=== PATIENT | male | born 1960 | race African-American/Black ===

== ENCOUNTER 2017-02-03 06:36 | Observation (INO) | payer MEDICAID ==
[~2017-02-03] VITALS: Ht 172.7 cm; Wt 76.0 kg
[2017-02-03] VITALS (10 sets, daily range): BP systolic 104–121; BP diastolic 72–88; PULSE 68–90; TEMP 97.9–98.3
[~2017-02-03 06:36] MED LIST: ADVIL 200MG TA200 MG PO; ALEVE 220MG220 MG PO; BENTYL 10MG10 MG/CAP PO; CARAFATE 1GM1 G PO; CELEBREX 1100 MG/CAP PO; DESYREL 50MG50 MG; EMBEDA PO; FLEXERIL 1010 MG/TAB PO; FLEXERIL10 MG PO; LORTAB 10/500 51 TA1 PO; LORTAB 5/500 501 TAB PO; MELATIN 3 MG-11 TAB PO; MUSCLE RELAXERS; NAPROSYN500 MG PO; NO HOME MEDICATIONS; NORCO 325 MG-101 TA1 PO; NORCO 325 MG-101 TAB PO; NORCO 325 MG-51 TAB PO; NORCO 325 MG-7.1 TAB PO; NORVASC 5MG5 MG/TAB PO; PERIACTIN 4MG TA4 MG PO; PRIL40 PO; PROTONIX 40MG T40 MG PO; TYLENOL 325MG325 MG PO; VALIUM 5MG T5 MG/TAB PO; ZANAFLEX CAPSULE2 MG PO; ZOFRAN 4MG T4 MG/TAB PO; ZOFRAN ODT4 MG PO
[2017-02-03 07:10] LABS: BASO % 0.5 % (0.0-2.0); EOS # 0.1 (0.0-0.7); EOS % 3.3 % (0-4.0); GRAN % 52.4 % (42.2-75.2); HEMATOCRIT 40.8 % (42.0-52.0); HEMOGLOBIN 13.4 g/dl (13.5-18.0); LYMPH # 1.2 (1.2-3.4); LYMPH % 30.6 % (20.0-51.0); MEAN CELL VOLUME 86 fl (80.0-100.0); MEAN CORPUSCULAR HEMOGLOBIN 28 pg (27.0-31.0); MEAN CORPUSCULAR HGB CONC 33 g/dl (33.0-37.0); MEAN PLATELET VOLUME 9.1 fl (7.4-10.4); MONO # 0.5 (0.1-0.6); MONO % 12.9 % (1.7-9.3); PLATELET COUNT 190 K/mm3 (130-400); RED BLOOD COUNT 4.76 M/mm3 (4.20-5.60); REDCELL DISTRIBUTION WIDTH-CV 14.3 % (11.5-14.5); WHITE BLOOD COUNT 3.9 K/mm3 (4.8-10.8)
[2017-02-03 08:20] LABS: ADJUSTED CALCIUM 8.2 mg/dL (8.4-10.2); ALBUMIN 3.7 gm/dL (3.5-5.0); BILIRUBIN,TOTAL 0.9 mg/dL (0.0-1.0); CREATININE, serum 0.73 mg/dL (0.66-1.25); POTASSIUM 3.1 mmol/L (3.4-5.0); TOTAL PROTEIN 7.1 gm/dL (6.4-8.2)
[2017-02-03] MEDS ORDERED: NORVASC2.5 MG PO (10:09)
[2017-02-03] MEDS ORDERED: PERIACTIN 4MG TA4 MG PO (10:10)
[2017-02-03] MEDS ORDERED: IBU400 MG PO (10:11)
[2017-02-03] MEDS ORDERED: NORVASC 5MG5 MG/TAB PO (10:11)
[2017-02-03] MEDS ORDERED: NORCO 325 MG-101 TAB PO (10:12)
[2017-02-03] MEDS ORDERED: LEXAPRO20 MG PO (10:13)
[2017-02-03] MEDS ORDERED: VALIUM 2MG T2 MG/TAB PO (10:13)
== END 2017-02-03 17:00 | disposition home or self-care (01) ==
LOC: COL.ER 06:36 → SURG 09:07
PROVIDERS: Emergency Medicine; Family Medicine
DX: T18.5XXA Foreign body in anus and rectum, initial encounter (principal); Z87.891 Personal history of nicotine dependence
CPT/HCPCS: J2270; J2550; J2704; J2765; J3010; J7030

== ENCOUNTER 2017-04-29 14:00 | Outpatient (RCR) | payer MEDICAID ==
[~2017-04-29 14:00] MED LIST changes: +IBU400 MG PO; +LEXAPRO20 MG PO; +NORVASC2.5 MG PO; +VALIUM 2MG T2 MG/TAB PO
== END 2017-05-09 16:37 ==
LOC: WSPT 14:00
DX: M54.41 Lumbago with sciatica, right side (principal); M25.522 Pain in left elbow; M54.2 Cervicalgia; G89.29 Other chronic pain; I10 Essential (primary) hypertension; Z87.891 Personal history of nicotine dependence

== ENCOUNTER → 2017-08-01 | Outpatient (CLI) | payer MEDICAID ==
[2017-08-01 16:37] LABS: AMPHETAMINE URINE NEGATIVE; BARBITURATES URINE NEGATIVE; BENZODIAZEPINES URINE NEGATIVE; BUPRENORPHINE URINE NEGATIVE; METHADONE URINE NEGATIVE; OPIATES URINE NEGATIVE; OXYCODONE URINE NEGATIVE; PHENCYCLIDINE URINE NEGATIVE; PROPOXYPHENE URINE NEGATIVE; THC CANNABINOIDS URINE NEGATIVE; TRICYCLIC ANTIDEPRESS URINE NEGATIVE
== END ==
LOC: COL.LAB 15:38
PROVIDERS: Nurse Practitioner
DX: M54.5 Low back pain (principal); G89.29 Other chronic pain

== ENCOUNTER 2022-03-21 22:17 | Emergency (ER) | payer MEDICAID ==
[~2022-03-21] VITALS: Ht 185.4 cm; Wt 79.5 kg
[~2022-03-21 22:17] MED LIST changes: +MOTRIN 400400 MG/TAB PO
[2022-03-21 22:44] LABS: BASO % 0.5 % (0.0-2.0); GRAN # 2.3 K/mm3 (1.4-6.5); GRAN % 59.1 % (42.2-75.2); HEMATOCRIT 42.6 % (42.0-52.0); HEMOGLOBIN 13.7 g/dl (13.5-18.0); LYMPH # 0.8 K/mm3 (1.2-3.4); LYMPH % 21.1 % (20.0-51.0); MEAN CELL VOLUME 86 fl (80.0-100.0); MEAN CORPUSCULAR HEMOGLOBIN 28 pg (27-31); MEAN CORPUSCULAR HGB CONC 32 g/dl (33.0-37.0); MEAN PLATELET VOLUME 8.8 fl (7.4-10.4); MONO # 0.7 K/mm3 (0.1-0.6); MONO % 18.3 % (1.7-9.3); PLATELET COUNT 200 K/mm3 (130-400); RED BLOOD COUNT 4.97 M/mm3 (4.20-5.60); REDCELL DISTRIBUTION WIDTH-CV 13.2 % (11.5-14.5)
[2022-03-21 23:04] LABS: ALBUMIN 3.6 gm/dL (3.4-4.8); BILIRUBIN,TOTAL 0.3 mg/dL (0.2-1.2); CALCIUM 8.9 mg/dL (8.4-10.2); CREATININE, serum 0.93 mg/dL (0.72-1.25); POTASSIUM 3.9 mmol/L (3.5-4.5); TOTAL PROTEIN 7.5 gm/dL (6.2-8.1)
[2022-03-21] MEDS ORDERED: ZOFRAN ODT4 MG PO (23:15)
[2022-03-22 00:16] VITALS: BP 143/88; PULSE 78; TEMP 99.2
== END 2022-03-22 00:15 | disposition home or self-care (01) ==
LOC: COL.ER 22:17
PROVIDERS: Nurse Practitioner Primary Care
DX: U07.1 COVID-19 (principal); F17.200 Nicotine dependence, unspecified, uncomplicated; Z88.6 Allergy status to analgesic agent; Z28.310 Unvaccinated for COVID-19
CPT/HCPCS: J1885; J2405; J7030

== ENCOUNTER 2024-06-28 08:50 | Inpatient (IN) | payer SELFPAY ==
[~2024-06-28] VITALS: Ht 172.7 cm; Wt 64.1 kg
[2024-06-28] VITALS (429 sets, daily range): BP systolic 70–143; BP diastolic 55–117; PULSE 82–129; TEMP 97.8–98; O2SAT 83–100
[2024-06-28] MEDS ORDERED: methylPREDNISolone Sod Succ 125 MG/2 ML VIAL IV ONE (09:00)
[2024-06-28] MEDS ORDERED: Albuterol/Ipratropium 3 MG-0.5 MG/3 ML Neb Soln IH ONE (09:00)
[2024-06-28] MEDS ORDERED: diphenhydrAMINE 50 MG/ML 1 ML VIAL IV ONE (09:00)
[2024-06-28] MEDS ORDERED: droPERidol 2.5 MG/ML 2 ML VIAL IV ONE (09:00)
[2024-06-28 10:04] LABS: BASO % 0.6 % (0.0-2.0); EOS # 0.1 K/mm3 (0.0-0.7); EOS % 1.8 % (0.0-4.0); GRAN # 3.2 K/mm3 (1.4-6.5); GRAN % 62.4 % (42.2-75.2); HEMOGLOBIN 16.2 g/dl (13.5-18.0); LYMPH # 1.3 K/mm3 (1.2-3.4); LYMPH % 25.3 % (20.0-51.0); MEAN CELL VOLUME 91 fl (80.0-100.0); MEAN CORPUSCULAR HEMOGLOBIN 28 pg (27-31); MEAN CORPUSCULAR HGB CONC 31 g/dl (33.0-37.0); MEAN PLATELET VOLUME 9.3 fl (7.4-10.4); MONO # 0.5 K/mm3 (0.1-0.6); MONO % 9.5 % (1.7-9.3); PLATELET COUNT 261 K/mm3 (130-400); RED BLOOD COUNT 5.73 M/mm3 (4.20-5.60); REDCELL DISTRIBUTION WIDTH-CV 14.1 % (11.5-14.5)
[2024-06-28 10:11] LABS: HEMATOCRIT 52.2 % (42.0-52.0)
[2024-06-28] MEDS ORDERED: DOPamine/Dextrose 5%-Water 250 ML IV ONE (10:15)
[2024-06-28] MEDS ORDERED: Etomidate 20 MG/10 ML VIAL IV ONE (10:15)
[2024-06-28] MEDS ORDERED: fentaNYL 100 ML IV ONE (10:15)
[2024-06-28] MEDS ORDERED: Rocuronium 50 MG/5 ML Multi-Dose VIAL IV ONE (10:15)
[2024-06-28 10:23] LABS: BILIRUBIN,TOTAL 0.4 mg/dL (0.2-1.2); CALCIUM 9.5 mg/dL (8.4-10.2); CREATININE, serum 1.06 mg/dL (0.72-1.25); POTASSIUM 4.5 mEq/L (3.5-4.5); TOTAL PROTEIN 9.7 g/dl (6.2-8.1)
[2024-06-28 11:24] LABS: ARTERIAL BLD GAS O2 SATURATION 97.9 % (92-100); ARTERIAL BLD GAS TCO2 CT 32.3; ARTERIAL BLOOD GAS BASE EXCESS 4.9 (-2-2); ARTERIAL BLOOD GAS HCO3 30.8 meq/L (22-26); ARTERIAL BLOOD GAS PCO2 50.1 mmHg (35-45); ARTERIAL BLOOD GAS PO2 105.8 mmHg (80-100); ARTERIAL BLOOD GAS pH 7.41 (7.35-7.45)
[2024-06-28] MEDS ORDERED: Ondansetron 4 MG/2 ML VIAL IV PRN (11:30)
[2024-06-28] MEDS ORDERED: fentaNYL 100 ML IV SCH (11:30)
[2024-06-28] MEDS ORDERED: Albuterol/Ipratropium 3 MG-0.5 MG/3 ML Neb Soln IH PRN (11:30)
[2024-06-28] MEDS ORDERED: Naloxone 0.4 MG/ML VIAL IV PRN (11:30)
[2024-06-28] MEDS ORDERED: dexAMETHasone 10 MG/ML VIAL IV SCH (11:45)
[2024-06-28 12:41] LABS: COLLECTION METHOD CLEAN CATCH
[2024-06-28 12:49] LABS: PH 6.5 (5.0-8.5); URINE APPEARANCE CLEAR (CLEAR/HAZY); URINE BLOOD NEGATIVE (NEGATIVE); URINE COLOR YELLOW (YELLOW); URINE GLUCOSE TRACE (NEGATIVE); URINE KETONE NEGATIVE (NEGATIVE); URINE NITRATE NEGATIVE (NEGATIVE); URINE PROTEIN(semi-quant) 1+ (NEGATIVE)
[2024-06-28 12:58] LABS: TRICYCLIC ANTIDEPRESS URINE NEGATIVE (NEGATIVE)
[2024-06-28] MEDS ORDERED: Albuterol/Ipratropium 3 MG-0.5 MG/3 ML Neb Soln IH SCH (14:00)
--- NOTE | 2024-06-28 14:56 | NUR ---
Patient's family at bedside; patient's rings, including wedding band, ring with a blue stone, and ring with a red stone and a black beaded bracelet were all sent home with patient's daughter, Roxanne.
[2024-06-28] MEDS ORDERED: LR 1,000 ML IV SCH (15:45)
--- NOTE | 2024-06-28 16:34 | NUR ---
BELONGINGS ENVELOPE PLACED IN THE DRAW END HAND SAFE.
[2024-06-28] MEDS ORDERED: Pantoprazole 80 MG in NS 100 ML IV ONE (17:00)
[2024-06-28] MEDS ORDERED: 1: LR 1,000 ML 2: NS 1,000 ML IV SCH (17:45)
[2024-06-28] MEDS ORDERED: Formoterol Neb Soln 20 MCG/2 ML UD IH SCH (19:00)
[2024-06-28] MEDS ORDERED: Budesonide Neb Susp 0.5 MG/2 ML AMP IH SCH (19:00)
--- NOTE | 2024-06-28 19:48 | NUR ---
PATIENT CURRENTLY INTUBATED AND SEDATED. BILATERAL WRIST RESTRAINTS IN PLACE. ET TUBE AT 24 AT THE TEETH. OG AT 55 AT THE TEETH. RODAS CATHETER IN PLACE AND DRAINING WELL. PICC IN RIGHT UPPER ARM WITH GTTS INFUSING. PERIPHERAL IN LEFT AC. NO ACUTE EVENTS.
[2024-06-28 21:12] LABS: GRAN # 1.8 K/mm3 (1.4-6.5); GRAN % 79.2 % (42.2-75.2); HEMATOCRIT 37.2 % (42.0-52.0); LYMPH # 0.4 K/mm3 (1.2-3.4); LYMPH % 18.6 % (20.0-51.0); MEAN CELL VOLUME 88 fl (80.0-100.0); MEAN CORPUSCULAR HEMOGLOBIN 29 pg (27-31); MEAN CORPUSCULAR HGB CONC 33 g/dl (33.0-37.0); MEAN PLATELET VOLUME 9.1 fl (7.4-10.4); MONO % 1.8 % (1.7-9.3); PLATELET COUNT 209 K/mm3 (130-400); RED BLOOD COUNT 4.24 M/mm3 (4.20-5.60); REDCELL DISTRIBUTION WIDTH-CV 13.9 % (11.5-14.5)
[2024-06-28 21:23] LABS: HEMOGLOBIN 12.1 g/dl (13.5-18.0)
[2024-06-29] VITALS (731 sets, daily range): BP systolic 101–148; BP diastolic 57–101; PULSE 75–112; TEMP 97.4–98.5; O2SAT 78–100
--- NOTE | 2024-06-29 05:19 | NUR ---
CURRENTLY COMING DOWN STEADILY ON SEDATION FOR EXTUBATION THIS AM.
[2024-06-29 05:24] LABS: GRAN # 2.4 K/mm3 (1.4-6.5); GRAN % 76.2 % (42.2-75.2); HEMOGLOBIN 11.7 g/dl (13.5-18.0); LYMPH # 0.5 K/mm3 (1.2-3.4); LYMPH % 16.3 % (20.0-51.0); MEAN CELL VOLUME 87 fl (80.0-100.0); MEAN CORPUSCULAR HEMOGLOBIN 28 pg (27-31); MEAN CORPUSCULAR HGB CONC 33 g/dl (33.0-37.0); MEAN PLATELET VOLUME 9.3 fl (7.4-10.4); MONO # 0.2 K/mm3 (0.1-0.6); MONO % 7.5 % (1.7-9.3); PLATELET COUNT 208 K/mm3 (130-400); RED BLOOD COUNT 4.12 M/mm3 (4.20-5.60); REDCELL DISTRIBUTION WIDTH-CV 13.7 % (11.5-14.5)
[2024-06-29 05:27] LABS: HEMATOCRIT 35.7 % (42.0-52.0)
[2024-06-29 05:47] LABS: ALBUMIN 2.6 g/dL (3.4-4.8); BILIRUBIN,TOTAL 0.2 mg/dL (0.2-1.2); CALCIUM 8.2 mg/dL (8.4-10.2); POTASSIUM 4.5 mEq/L (3.5-4.5); TOTAL PROTEIN 6.1 g/dl (6.2-8.1)
--- NOTE | 2024-06-29 06:03 | NUR ---
SEDATION TURNED OFF AT 0600. PATIENT ALERT, FOLLOWING COMMANDS AND ANSWERING YES/NO QUESTIONS. CALL LIGHT WITHIN REACH. NO ACUTE EVENTS.
--- NOTE | 2024-06-29 07:00 | NUR ---
Report received from [facility]; patient currently on ventilator with sedation on standby to see if patient may be extubated today. Patient has fluids running through his right upper arm PICC; ET tube and OG tube are still in place, as is the Pace catheter. No other lines or tubes are in place at this time. Patient's vital signs within normal limits this morning. With sedation off, patient responsive and answering questions appropriately. Dr. Euceda will assess patient to see if extubation may be possible today.
[2024-06-29 08:14] LABS: ARTERIAL BLD GAS O2 SATURATION 96.5 % (92-100); ARTERIAL BLOOD GAS BASE EXCESS -1.5 (-2-2); ARTERIAL BLOOD GAS HCO3 23.7 meq/L (22-26); ARTERIAL BLOOD GAS PO2 90.8 mmHg (80-100); ARTERIAL BLOOD GAS pH 7.37 (7.35-7.45)
--- NOTE | 2024-06-29 08:30 | NUR ---
Patient extubated at 0824 this morning with RT Merari and this nurse bedside. Patient placed on oxymask and satting in the high 90s. Patient tolerated extubation well.
--- NOTE | 2024-06-29 08:39 | NUR ---
PT EXTUBATED TO 2L OXYMASK RN AT BEDSIDE NO COMPLICATIONS TOLERATED WELL. SPO2 99%.
[2024-06-29] MEDS ORDERED: Pantoprazole 40 MG in NS 10 ML IV SCH (09:00)
[2024-06-29] MEDS ORDERED: dexAMETHasone 10 MG/ML VIAL IV SCH (09:00)
--- NOTE | 2024-06-29 13:13 | NUR ---
Initial visit; Patient and her ; Enio, thanked Industrial Hygenist for offering God's blessings and prayer for healing for Sarah. Industrial Hygenist had a nice visit with them and wished them God's blessings.
[2024-06-29] MEDS ORDERED: NS 1,000 ML IV SCH (14:00)
--- NOTE | 2024-06-29 14:03 | NUR ---
Catering Service Manager met with patient to discuss discharge planning. Patient lives in [place] and stated he lives alone. Patient does not have a primary care provider so SW talked about [facility] and [facility]. Patient was agreeable to have SW make him an appointment at [facility] for follow up after his hospital stay. Patient gets his medications from [facility] on [address] and stated he is "supposed to" when SW asked about DME. Patient stated he's lost about four canes recently. Patient stated "I try" when SW asked about independence with ADLS. Vitaliy does not have DPOA-HC and was not interested in completing one at this time. Patient is not and has two daughters, Roxanne (ph#[phone]) and Cesia. Patient also has two step children, Brayan and Edel. Patient stated Brayan lives in [place]. Patient also listed his mother, Colleen (ph#[phone]) as a point of contact. SW addressed patient's illegal drug use and patient stated he tries not to make it a regular thing. When asked about prior rehab stays patient stated "too many". Patient advised he recently worked with [facility] and thinks he needs to contact them again. SW provided drug and alcohol resources to patient which included contact info for [facility]. Discharge Plan: Home
--- NOTE | 2024-06-29 20:27 | NUR ---
PT'S DAUGHTER WANTS A DOCTORS NOTE STATING THAT HER DAD NEEDS AN APARTMENT ON THE FIRST OR SECOND FLOOR DUE TO HIS RESPIRATORY CONDITION.
--- NOTE | 2024-06-29 21:24 | NUR ---
PATIENT BROUGHT UP TO [id number] FROM ICU BY RN FARIDA. PATIENT AMBULATED WITH GOOD EFFORT FROM BED TO BED USING WALKER. KING NOTED. VS ARE WNL AND PATIENT IS A&O X4 AND PLEASANT. REQUESTING SANDWHICH, TOLERATING APPLESAUCE. WILL CALL HOSPITALIST FOR DIET ORDER AND MELATONNIN PATIENT STATES RESTLESSNESS. SEE INTAKE ASSESSMENT.PATIENT OXYMASK AT 2L. CALL LIGHT WITHIN REACH, BED ALARM ON.
[2024-06-29] MEDS ORDERED: Melatonin 3 MG TAB PO SCH (22:21)
--- NOTE | 2024-06-29 23:00 | NUR ---
CALL PLACED TO HOSPITALIST AMADA, PATIENT RESTLESS. TORB FOR 6MG MELATONIN PO HS GIVEN.
--- NOTE | 2024-06-29 23:41 | NUR ---
CALL PLACED TO HOSPITALISTAMADA. PATIENT REQUESTING RODAS BE REMOVED, STATES IT IS BECOMING PAINFUL. RODAS WAS PLACED FOR INTUBATION REASONS IN ICU. PATIENT HAS NO Hx OF URINARY RETENTION. TORB TO REMOVE RODAS GIVEN AND TO MAINTAIN OUTPUT VIGILANCE.
--- NOTE | 2024-06-29 23:54 | NUR ---
PATIENT AMBULATED WITH WALKER AND STANDBY ASSIST TO RESTROOM. GAIT WAS STEADY AND SLOW. PATIENT EATING SANDWHICH AND TOLERATING SOLIDS WELL.
[2024-06-30] VITALS (8 sets, daily range): BP systolic 131–160; BP diastolic 76–87; PULSE 101–109; TEMP 97.9–99.3
--- NOTE | 2024-06-30 06:18 | NUR ---
RODAS REMOVED. CATHERTER TIP INTACT. AMBULATED PATIENT TO RESTROOM AND HE VOIDED [id number], PALE YELLOW URINE. WILL CONTINUE VIGILANCE.
[2024-06-30 06:20] LABS: BASO % 0.1 % (0.0-2.0); GRAN # 5.1 K/mm3 (1.4-6.5); GRAN % 75.3 % (42.2-75.2); HEMATOCRIT 37.1 % (42.0-52.0); HEMOGLOBIN 11.9 g/dl (13.5-18.0); LYMPH # 1.1 K/mm3 (1.2-3.4); LYMPH % 15.9 % (20.0-51.0); MEAN CELL VOLUME 88 fl (80.0-100.0); MEAN CORPUSCULAR HEMOGLOBIN 28 pg (27-31); MEAN CORPUSCULAR HGB CONC 32 g/dl (33.0-37.0); MEAN PLATELET VOLUME 9.4 fl (7.4-10.4); MONO # 0.6 K/mm3 (0.1-0.6); MONO % 8.4 % (1.7-9.3); PLATELET COUNT 208 K/mm3 (130-400); REDCELL DISTRIBUTION WIDTH-CV 14.1 % (11.5-14.5)
[2024-06-30 06:53] LABS: ALBUMIN 2.4 g/dL (3.4-4.8); BILIRUBIN,TOTAL 0.2 mg/dL (0.2-1.2); CALCIUM 7.8 mg/dL (8.4-10.2); CREATININE, serum 0.9 mg/dL (0.72-1.25); POTASSIUM 3.6 mEq/L (3.5-4.5); TOTAL PROTEIN 5.9 g/dl (6.2-8.1)
--- NOTE | 2024-06-30 09:53 | NUR ---
PT IS LAYING IN BED AWAKE. HE IS ALERT AND ORIENTED. HE NEEDS TO USE THE RESTROOM. THE WALKER WAS PROVIDED TO HIM AND HE WAS ASSISTED TO THE BATHROOM WITH NO DIFFICULTIES. HE HAS AN UPPER ARM PICC WITH NOTHING INFUSING. HE IS NOT ON ANY OXYGEN.
--- NOTE | 2024-06-30 13:18 | NUR ---
KARIE received VM from patient's daughter Roxanne ([phone]) requesting letter to provide to patient's landlord to request ground level apartment as patient lives on 3rd floor currently. KARIE typed letter stating patient was admitted to hospital which Dr. Frances signed. 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 Daughter explaining patient "doesn't want to leave due to fear of getting in the same shape again." SW provided letter of admission to daughter. SW also provided drug/alcohol resource list to daughter. Daughter states that they will go to patient's mother's home at discharge and contact inpt drug rehab facilities for patient admission. Discharge plan: Home with family
--- NOTE | 2024-06-30 15:24 | NUR ---
PT WAS DISCHARGED VIA A WHEELCHAIR. PT WAS ACCOMPANIED BY HIS DAUGHTER. 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 PT IS ALERT AND ORIENTED AND STABLE.
== END 2024-06-30 15:10 | disposition home or self-care (01) | DRG 189 ==
LOC: COL.ER 08:50 → ICU 11:16 → MEDICAL 06-29 20:47
PROVIDERS: Family Medicine; Internal Medicine Pulmonary Disease; ADMIT Internal Medicine
PROC: 02HV33Z Insertion of Infusion Device into Superior Vena Cava, Percutaneous Approach (ICD-10-PCS; principal; 2024-06-28)
PROC: 0BH17EZ Insertion of Endotracheal Airway into Trachea, Via Natural or Artificial Opening (ICD-10-PCS; 2024-06-28)
PROC: 5A0955A Assistance with Respiratory Ventilation, Greater than 96 Consecutive Hours, High Flow/Velocity Cannula (ICD-10-PCS; 2024-06-28)
DX: J96.01 Acute respiratory failure with hypoxia (principal); J44.1 Chronic obstructive pulmonary disease with (acute) exacerbation; K92.2 Gastrointestinal hemorrhage, unspecified; J96.02 Acute respiratory failure with hypercapnia; F15.10 Other stimulant abuse, uncomplicated; Z79.899 Other long term (current) drug therapy; Z91.048 Other nonmedicinal substance allergy status; Z88.5 Allergy status to narcotic agent; Z98.1 Arthrodesis status; Z90.49 Acquired absence of other specified parts of digestive tract; F14.10 Cocaine abuse, uncomplicated
CPT/HCPCS: C1751; J1100; J1200; J1650; J1790; J2470; J2704; J2919; J3010; J7030; J7060; J7120